=== PATIENT | female | born 1980 | race Caucasian/White ===

== ENCOUNTER 2017-01-30 08:02 | Day surgery (SDC) | payer OTHER ==
--- NOTE | 2017-01-29 11:23 | PCM.PREANE ---
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 Respiratory: Reports: no symptoms Cardiovascular: Reports: no symptoms GI: Reports: no symptoms - PHYSICAL ASSESSMENT Height: 1.7 m Weight: 109.769 kg ASA Class: 2 Mental Status: alert & oriented x3 Airway Class: Mallampati = 2 Dentition: Reports: normal dentition ROM/Head Extension: full Respiratory Status: lungs clear to auscultation bilaterally Cardiovascular Status: regular rate & rhythm, normal S1, S2, no murmur - ALLERGIES Allergies/Adverse Reactions: Allergies Allergy/AdvReac Type Severity Reaction Status Date / Time Sulfa (Sulfonamide Allergy Rash Verified 04/05/15 18:14 Antibiotics) - BLOOD Blood Available: No - ANESTHESIA PLAN Preop Beta Loretta: No Anesthesia Type Planned: general anesthesia, MAC - ACKNOWLEDGEMENTS Pt an appropriate candidate for the planned anesthesia: Yes Alternatives and risks of anesthesia discussed w pt/guardian: Yes Pt/Guardian understands and agree with anesthesia plan: Yes PreAnesthesia Questionnaire Neurological History: Reports: Migraines Endocrine/Metabolic History: Reports: Obesity/BMI 30+ - Past Surgical History Head Surgeries/Procedures: Reports: None Female Surgical History: Reports: section, D&C - SUBSTANCE USE Smoking Status *Q: Never Smoker Second Hand Smoke Exposure: No Days Per Week of Alcohol Use: 0 Recreational Drug Use History: No - HOME MEDS Home Medications: Home Meds . [No Known Home Meds] 01/25/17 [History] - CURRENT (IN HOUSE) MEDS Current Meds: Current Medications Lactated Ringer's (Ringers, Lactated) 1,000 mls @ 125 mls/hr IV ASDIRECTED YESENIA Sodium Chloride (Saline Flush) 10 ml FLUSH ASDIRECTED PRN PRN Reason: Keep Vein Open Sodium Chloride (Saline Flush) 2.5 ml FLUSH ASDIRECTED PRN PRN Reason: Keep Vein Open Discontinued Medications Cefazolin Sodium/Dextrose 2 gm (/ Premix) 50 mls @ 100 mls/hr IV ONETIME ONE Stop: 01/28/17 09:09
[~2017-01-30 08:02] MED LIST: Lactated Ringers 1,000 ML IV SCH; Sodium Chloride 0.9% 10 ML Syringe FLUSH PRN; Sodium Chloride 0.9% 2.5 ML Syringe FLUSH PRN; ceFAZolin 2 GM in Premix Bag 1 BAG IV ONE
[2017-01-30] MEDS ORDERED: fentaNYL 100 MCG/2 ML SDV ONE (08:04)
[2017-01-30] MEDS ORDERED: Midazolam 1 MG/ML 2 ML SDV ONE (08:04)
[2017-01-30] MEDS ORDERED: Propofol 200 MG/20 ML SDV ONE ×4 (08:04→11:16)
[2017-01-30] MEDS ORDERED: Bupivacaine 0.5% 30 ML SDV ONE (10:07)
[2017-01-30] MEDS ORDERED: Lidocaine 1% 20 ML MDV ONE (10:08)
--- NOTE | 2017-01-30 11:54 | PCM.OPNOTE ---
- General Post-Op/Procedure Note Date of Surgery/Procedure: 01/30/17 Operative Procedure(s): lipoma removal and removal of multiple nevi Findings: Axillary lipoma Anterior abdominal wall nevi Posterior left shoulder nevi Posterior right shoulder nevi Pre Op Diagnosis: lipoma, multiple nevi (anterior abdominal wall, posterior left and right shoulder) Post-Op Diagnosis: lipoma, multiple nevi (anterior abdominal wall, posterior left and right shoulder) [place]est[place] [facility] [place] Surgeon: Zaida Corona Condition: Good Free Text/Narrative:: 36 year old female that had a left axillary lipoma and mutiple nevi removed ( anterior abdominal wall, and posterior right and left shoulder)
--- NOTE | 2017-01-30 12:22 | PCM.POSTAN ---
POST ANESTHESIA ASSESSMENT - RESPIRATORY Respiratory Status: respiratory rate WNL, airway patent, O2 saturation stable - CARDIOVASCULAR CV Status: pulse rate WNL, blood pressure stable - GASTROINTESTINAL GI Status: no symptoms - POST OP HYDRATION Hydration Status: adequate & stable
--- NOTE | 2017-01-30 13:02 | PCM48HPAN ---
Post Anesthesia Note - EVALUATION WITHIN 48HRS OF ANESTHETIC Vital Signs in Normal Range: Yes Patient Participated in Evaluation: Yes Respiratory Function Stable: Yes Airway Patent: Yes Cardiovascular Function Stable: Yes Hydration Status Stable: Yes Pain Control Satisfactory: Yes Nausea and Vomiting Control Satisfactory: Yes Mental Status Recovered: Yes
[2017-01-30 13:11] VITALS: BP 108/64
--- NOTE | 2017-01-31 03:18 | OR ---
SURGEON: HILDA HARVEY MD DATE OF PROCEDURE: 01/30/2017 PREOPERATIVE DIAGNOSIS: Nevi of the abdomen and back and left axillary mass. POSTOPERATIVE DIAGNOSIS: Nevi of the abdominal wall, posterior right shoulder, left shoulder, and lipoma of the left axilla. PROCEDURE PERFORMED: 1. Excision nevus of the anterior abdominal wall. 2. Excision nevus, left upper back. 3. Excision nevus, right upper back. 4. Excision, left axillary mass. ANESTHESIA: Monitored anesthesia care and local. ESTIMATED BLOOD LOSS: 5 mL. FINDINGS: Three nevi approximately 1 cm in diameter, located on the anterior abdominal wall, the left upper back, right upper back and a left axillary mass consistent with a lipoma. The fatty mass was mainly within the subcutaneous fat but adjacent to the latissimus dorsi. COMPLICATIONS: None. EBL: 5 mL. INDICATIONS: The patient is a 36-year-old female, who presented to clinic with concerns over a left axillary mass and moles that have been bothering her. As far as the axillary mass, this has been slowly growing in size over long period of time, but it has now gotten to the point where she has discomfort due to the size of the mass and its location. It rubs against her bra line. The patient also has many congenital moles, 4 of which she is concerned about. They have been slowly growing in size over a time and appeared slightly discolored. She would like to have these removed as well. These are located on the anterior abdominal wall, 2 on her upper back and 1 on her right arm. I discussed with the patient that we could perform excisional biopsy of all of these. We discussed the procedure as well as expected perioperative course. We also discussed the risks of the procedure including bleeding, infection, damage to surrounding structures. The day of surgery, the decision was made to not excise the right arm lesion given that it is less concerning in nature and would be technically difficult to excise this while excising all the other masses at the same time. This plan was discussed with the patient. We decided to remove this mole in the office the next time the patient comes in for followup which will be in 2 weeks. The patient verbalized understanding and wished to proceed. PROCEDURE IN DETAIL: The patient was brought to the operating room and placed in the right lateral decubitus position. The elbows and knees were appropriately padded. A time-out was completed verifying the patient's name, age, date of , allergies, and procedure to be performed. Monitored anesthesia care was induced. The abdomen, back, and the left axilla were prepped and draped in the usual standard fashion. I first turned my attention to the patient's anterior abdominal wall nevus. The area around the nevus was anesthetized with 1% lidocaine. An elliptical incision was made around the mass and further dissection was performed using cautery. The elliptical piece of tissue around the nevus was then sent to pathology, labeled as anterior abdominal wall nevus number 1. Hemostasis was achieved with cautery. The wound was then closed with interrupted 3-0 Vicryl and the subcutaneous layer in a running 4-0 Monocryl subcuticular suture. Steri- Strips and a sterile dressing were applied. I then turned my attention to the patient's back. There were 2 nevi located on the left upper back and right upper back that I had identified with the patient in the preop area. These were removed in a similar fashion. They both were approximately 1 cm in diameter. Hemostasis was achieved with cautery and the wounds were closed similarly with interrupted 3-0 Vicryl and running 4-0 Monocryl suture. Steri-Strips and sterile dressings were applied to these. The nevi were sent as right shoulder nevus and left shoulder nevus. I then turned my attention to the patient's left axillary mass. This was approximately 8 cm in size and palpated. The area around the mass was anesthetized with 1% lidocaine and 0.5% Marcaine plain. Using a 10 blade, I made a 6 cm incision over the top of the mass. Cautery was used to dissect down into the subcutaneous fat. Skin flaps were then created both cephalad and caudad to allow me to dissect around the mass. The mass itself was deep to the immediate subcutaneous fat and was abutting the latissimus dorsi. The mass was then grasped with Allis clamps and dissection carried down to the level of the muscle. I carefully dissected underneath the lipoma, taking care not to remove any muscle with my specimen. The mass was entered at one point in time and appeared to be a lipoma. Once I completely dissected the mass out, it was then sent to pathology, labeled as left axillary lipoma. The wound was inspected for hemostasis and this was achieved using electrocautery. During the mobilization of the mass, I had also lifted up some normal appearing fat just caudally to this. This had been mobilized enough that I was able to bring it into the space left by the lipoma and suture it to the cranial subcutaneous tissues. This effectively closed the space left by the lipoma. This mobilized piece of subcutaneous fat was sutured to the cranial tissues using interrupted 3-0 Vicryl sutures. I then closed the subcutaneous fat immediately under the skin using interrupted 3-0 Vicryl sutures. The skin was then closed using a running 4-0 Monocryl suture in the subcuticular space. Steri-Strips and sterile dressings were applied. The counts were complete and correct at the end of the case. The patient was woken up and taken to PACU in stable condition. MARIA GUADALUPE VELIZ /[id number]
== END 2017-01-30 13:30 | disposition home or self-care (01) ==
LOC: MW.SDS 08:02
PROVIDERS: ATTEND Surgery
PROC: 0HB7XZZ Excision of Abdomen Skin, External Approach (ICD-10-PCS; principal; 2017-01-30)
PROC: 0HB6XZZ Excision of Back Skin, External Approach (ICD-10-PCS; 2017-01-30)
DX: D17.1 Benign lipomatous neoplasm of skin and subcutaneous tissue of trunk (principal); D22.5 Melanocytic nevi of trunk; E66.9 Obesity, unspecified; Z88.2 Allergy status to sulfonamides; Z98.890 Other specified postprocedural states; Z68.37 Body mass index [BMI] 37.0-37.9, adult
CPT/HCPCS: 11401; 21554; 81025; 88304; 88305; J0690; J2250; J3010; J7120; 00300; J2704

== ENCOUNTER 2023-02-28 06:50 | Observation (INO) | payer BC ==
[2023-02-26 17:16] LABS: CARBON DIOXIDE,CO2 27.7 mmol/L (21.0-32.0); POTASSIUM,K 3.8 mmol/L (3.5-5.1)
[~2023-02-28 06:50] MED LIST changes: +Scopolamine 1.5 MG Transdermal Patch TOP ONE; +Sodium Chloride 0.9% 20 ML SDV IV PRN; -ceFAZolin 2 GM in Premix Bag 1 BAG IV ONE; +ceFAZolin 2 GM in Sodium Chloride 0.9% 50 ML IV ONE
[2023-02-28] MEDS ORDERED: Bupivacaine 25%/EPINEPHrine/PF 30 ML ONE (07:40)
[2023-02-28] MEDS ORDERED: Ropivacaine 0.5% 5 MG/ML 30 ML SDV ONE (07:40)
[2023-02-28] MEDS ORDERED: Lidocaine 2% 5 ML SDV ONE (07:43)
[2023-02-28] MEDS ORDERED: Sugammadex Sodium 200 MG/2 ML VIAL ONE (07:43)
[2023-02-28] MEDS ORDERED: fentaNYL 100 MCG/2 ML SDV ONE (07:43)
[2023-02-28] MEDS ORDERED: Dexamethasone 4 MG/ML 5 ML MDV ONE (07:43)
[2023-02-28] MEDS ORDERED: Ondansetron 4 MG/2 ML SDV ONE (07:43)
[2023-02-28] MEDS ORDERED: Propofol 200 MG/20 ML SDV ONE ×3 (07:43→08:34)
[2023-02-28] MEDS ORDERED: Ketorolac 30 MG/ML SDV ONE (07:43)
[2023-02-28] MEDS ORDERED: Rocuronium Bromide 50 MG/5 ML Syringe ONE (07:43)
[2023-02-28] MEDS ORDERED: HYDROmorphone 1 MG/ML Syringe IVPUSH PRN (07:57)
[2023-02-28] MEDS ORDERED: Albuterol 0.083% 2.5 MG/3 ML Neb Soln NEB PRN (07:57)
[2023-02-28] MEDS ORDERED: Metoclopramide 10 MG/2 ML SDV IVPUSH PRN (07:57)
[2023-02-28] MEDS ORDERED: Naloxone 0.4 MG/ML SDV IVPUSH PRN (07:57)
[2023-02-28] MEDS ORDERED: Morphine 2 MG/ML SYRINGE IVPUSH PRN (07:57)
[2023-02-28] MEDS ORDERED: fentaNYL 50 MCG/ML SDV IVPUSH PRN (07:57)
[2023-02-28] MEDS ORDERED: Ondansetron 4 MG/2 ML SDV IVPUSH PRN ×2 (07:57→09:17)
[2023-02-28] MEDS ORDERED: Morphine Sulfate 10mg/ml SDV ONE (08:18)
[2023-02-28] MEDS ORDERED: Acetaminophen/oxyCODONE 325-5 MG Tab PO PRN ×2 (09:17)
[2023-02-28] MEDS ORDERED: Ketorolac 30 MG/ML SDV IVPUSH ONE (09:17)
[2023-02-28] MEDS ORDERED: Promethazine 25 MG/ML SDV IM PRN (09:17)
[2023-02-28] MEDS: Morphine 4 MG/ML Syringe IVPUSH PRN ×3 (10:25→21:22)
[2023-02-28] MEDS: Ketorolac 30 MG/ML SDV IVPUSH PRN (18:00)
[2023-03-01] MEDS: Ketorolac 30 MG/ML SDV IVPUSH PRN ×2 (04:23→11:24)
[2023-03-01 06:44] LABS: CARBON DIOXIDE,CO2 24.5 mmol/L (21.0-32.0); POTASSIUM,K 4.3 mmol/L (3.5-5.1)
[2023-03-01 12:10] VITALS: BP 112/53; PULSE 67
== END 2023-03-01 15:00 | disposition home or self-care (01) ==
LOC: MW.SDS 06:50 → MW.MS 09:17
PROVIDERS: ADMIT Obstetrics & Gynecology; ATTEND Obstetrics & Gynecology
DX: D27.0 Benign neoplasm of right ovary (principal); D28.2 Benign neoplasm of uterine tubes and ligaments; G43.909 Migraine, unspecified, not intractable, without status migrainosus; Z88.5 Allergy status to narcotic agent; Z88.2 Allergy status to sulfonamides
CPT/HCPCS: 36415; 58720; 80048; 84703; 85025; 85027; 86850; 86900; 86901; A9270; J0131; J1100; J1170; J1885; J2270; J2704; J2795; J3010; J3490; J7030; J7120; 00840; 64488; J2405

== ENCOUNTER 2024-01-01 21:15 | Emergency (ER) | payer BC ==
[2024-01-01] MEDS: Meclizine 25 MG Tab PO STA (22:01)
[2024-01-01] MEDS: Sodium Chloride 0.9% 10 ML Syringe FLUSH PRN (22:01)
[2024-01-01] MEDS: Sodium Chloride 0.9% 1,000 ML IV STA (22:01)
[2024-01-01] MEDS: Sodium Chloride 0.9% 2.5 ML Syringe FLUSH PRN (22:01)
[2024-01-01 22:15] LABS: BASOPHILS ABSOLUTE AUTO 0.06 K/uL (0.00-0.20); BASOPHILS PERCENT AUTO 0.5 % (0.0-1.0); EOSINOPHILS ABSOLUTE AUTO 0.39 K/uL (0.00-0.45); EOSINOPHILS PERCENT AUTO 3.5 % (0.0-6.0); HEMATOCRIT 41.2 % (37.0-47.0); HEMOGLOBIN 14.5 g/dL (12.0-16.0); IMMATURE GRAN ABSOLUTE AUTO 0.03 K/uL (0.00-0.05); IMMATURE GRAN PERCENT AUTO 0.3 % (0.0-0.4); LYMPHOCYTES ABSOLUTE AUTO 3.92 K/uL (1.00-4.80); LYMPHOCYTES PERCENT AUTO 35.2 % (24.0-44.0); MEAN CORPUSCULAR HEMOGLOBIN 29.6 pg (28.0-32.0); MEAN CORPUSCULAR HGB CONC 35.2 g/dL (32.0-36.0); MEAN CORPUSCULAR VOLUME 84.1 fL (83.0-99.0); MEAN PLATELET VOLUME 10.6 fL (9.4-12.3); MONOCYTES ABSOLUTE AUTO 0.69 K/uL (0.00-0.80); MONOCYTES PERCENT AUTO 6.2 % (0.0-8.0); NEUTROPHILS ABSOLUTE AUTO 6.04 K/uL (1.80-7.70); NEUTROPHILS PERCENT AUTO 54.3 % (41.0-71.0); PLATELET COUNT,PLT 345 K/uL (150-400); WHITE BLOOD CELL COUNT,WBC 11.13 K/uL (3.9-11.3)
[2024-01-01 22:41] LABS: A/G RATIO 0.9 (0.9-1.6); ALBUMIN 3.5 g/dL (3.4-5.0); BILIRUBIN TOTAL 0.3 mg/dL (0.2-1.0); CALCIUM 8.9 mg/dL (8.5-10.1); CREATININE 0.8 mg/dL (0.6-1.0); EST CRCL DRUG DOSING (CG) 89.99 mL/min; MAGNESIUM 1.9 mg/dL (1.8-2.4); POTASSIUM,K 4.1 mmol/L (3.5-5.1); PROTEIN TOTAL,TP 7.2 g/dL (6.4-8.2)
[2024-01-01 22:47] LABS: APPEARANCE,URINE CLEAR; BILIRUBIN,URINE NEGATIVE (NEGATIVE); COLOR,URINE YELLOW; GLUCOSE,URINE NEGATIVE (NEGATIVE); KETONES,URINE NEGATIVE (NEGATIVE); LEUKOCYTE ESTERASE,URINE NEGATIVE (NEGATIVE); NITRITE,URINE NEGATIVE (NEGATIVE); OCCULT BLOOD,URINE SMALL (NEGATIVE); PROTEIN,URINE NEGATIVE (NEGATIVE); UROBILINOGEN,URINE 0.2 EU/dL (<2.0)
[2024-01-01 22:57] LABS: AMORPHOUS SEDIMENT,URINE LIGHT (NEGATIVE); BACTERIA,URINE FEW (NEGATIVE); EPITHELIAL CELLS,URINE FEW (NONE-FEW); RBC,URINE 0-2 (0-2/HPF); WBC,URINE 0-1 (0-5/HPF)
[2024-01-01 23:48] VITALS: BP 126/78; PULSE 68
== END 2024-01-01 23:47 | disposition home or self-care (01) ==
LOC: MW.ED 21:15
DX: R42 Dizziness and giddiness (principal); E66.9 Obesity, unspecified; Z88.6 Allergy status to analgesic agent; Z88.5 Allergy status to narcotic agent; Z88.2 Allergy status to sulfonamides; Z68.39 Body mass index [BMI] 39.0-39.9, adult
CPT/HCPCS: 36415; 70450; 71046; 80053; 81001; 83690; 83735; 84484; 84703; 85025; 96360; 99284; A9270; J3490; J7030; 93010; 99283